=== PATIENT | female | born 1950 | race Caucasian/White ===

== ENCOUNTER → 2018-07-22 | Day surgery (SDC) | payer MEDICARE ==
--- NOTE | 2018-07-22 09:54 | MMO ---
LEFT BREAST DIAGNOSTIC MAMMOGRAM: Date: 07/22/18 INDICATION: Status post stereotactic left breast biopsy for suspicious cluster of calcifications within the centr al left breast. COMPARISON: Left breast diagnostic evaluation dated 07/06/18 and screening evaluation dated 06/09/18 from [facility]. FINDINGS: There are scattered fibroglandular elements within the left breast. There are scattered areas of coar se calcifications within the left breast. There is a biopsy clip seen within the central left breast. There is a prominent hematoma seen within the central left breast. The suspicious cluster of calcifications is seen at the very inferior aspec t of the hematoma site. The biopsy clip has migrated to the central aspect of the left breast above t he level of the suspicious cluster. A few of the calcifications are missing from the more inferior an d anterior aspect of the suspicious cluster. There are financial service representative calcifications seen within the comparison surgical specimen radiograph. IMPRESSION: BIRADS Category 4 - Suspicious abnormality. A biopsy clip is migrated slightly cephalad to the centra l aspect of the left breast, related to hematoma development from the stereotactic breast biopsy site . A few of the calcifications are missing from the inferior and anterior aspect of the cluster of alejandro cifications when comparing it to the comparison screening evaluation dated 06/09/18 and a diagnostic evaluation dated 07/06/18. There were financial service representative calcifications within the surgical specimen perf ormed at the time of the stereotactic breast biopsy. Awaiting pathology results. POS: OFF
--- NOTE | 2018-07-22 09:55 | MMO ---
LEFT BREAST STEREOTACTIC BREAST BIOPSY: COMPARISON: Diagnostic evaluation performed at [facility] dated 07/06/2018. TECHNIQUE: Informed conent was obtained. The patient was placed prone on the stereotactic breast table. The le ft breast was compressed in the mammographic unit of the stereotactic breast table. Preprocedure ester ges were obtained localizing the suspicious cluster of calcification within the central left breast. The site overlying the cranial aspect of the left breast was marked. The site was prepped and drape d in the usual sterile fashion. Buffered 1% Lidocaine was administered to the skin an subcutaneous t issues. A small dermatotomy was made. The stereotactic breast needle was guided into the dermatotom y site. Pre-fire images were obtained and demonstrated appropriate positioning of the needle in rela tionship to the targeted calcifications. The stereotactic breast needle was then fired and the needl e was positioned in the region of the calcifications. Post fire images confirmed that the needle tip was in the region of suspicious calcification. Following this, there was vacuum-assisted circumfere ntial core sampling of the biopsy site. Six separate core samples were obtained and acquired. The s amples were then set to mammography for confirmation of sampling of artists' booking representative calcifications fro m the suspicious cluster. Following confirmation that artists' booking representative calcifications were present wit hin the sample, a biopsy clip was placed. Pressure was held at the biopsy site until hemostasis was obtained. The patient tolerated the procedure. Post mammographic images are to be obtained of the l eft breast to confirm clip placement. IMPRESSION: BIRADS category 4 - suspicious abnormality. Status post stereotactic breast biopsy of the suspicious cluster of calcifications within the central left breast. Awaiting pathology results. POS: OFF
--- NOTE | 2018-07-22 10:00 | MMO ---
SURGICAL SPECIMEN MAMMOGRAPHIC EVALUATION: INDICATION: Stereotactic left breast biopsy for suspicious cluster of classifications. FINDINGS: There are sales representative advertising calcifications within the core samples from the left breast stereotactic bio psy. IMPRESSION: BIRADS category 4 - suspicious abnormality. Personal Care Aide calcifications are present within the cor e sample. POS: OFF
== END ==
LOC: MAMMO 07:03
PROVIDERS: ATTEND Radiology Diagnostic Radiology
PROC: 0HBU3ZX Excision of Left Breast, Percutaneous Approach, Diagnostic (ICD-10-PCS; principal; 2018-07-22)
DX: R92.0 Mammographic microcalcification found on diagnostic imaging of breast (principal)
CPT/HCPCS: 19081; 76098; 88305; 88341; 88342